=== PATIENT | male | born 1975 | race Caucasian/White ===

== ENCOUNTER 2017-01-17 04:39 | Emergency (ER) | payer OTHER ==
[~2017-01-17] VITALS: Ht 182.9 cm; Wt 122.5 kg
[2017-01-17] MEDS ORDERED: SERTRALINE HCL50 MG PO (04:46)
[2017-01-17] MEDS ORDERED: ATORVASTATIN CA10 MG PO (04:46)
[2017-01-17] MEDS ORDERED: LISINOPRIL40 MG PO (04:46)
[2017-01-17] MEDS ORDERED: VITAMIN D250000 UNIT PO (04:46)
[2017-01-17] MEDS ORDERED: NAPROXEN500 MG PO (04:47)
[2017-01-17] MEDS ORDERED: NORCO 5-325 TA1 EACH PO (06:19)
== END 2017-01-17 07:06 | disposition home or self-care (01) ==
LOC: ED 04:39
DX: N23 Unspecified renal colic (principal); I10 Essential (primary) hypertension; Z98.890 Other specified postprocedural states; Z79.899 Other long term (current) drug therapy
CPT/HCPCS: 74176; 81001; 99284

== ENCOUNTER 2020-05-05 07:55 | Day surgery (SDC) | payer OTHER ==
[~2020-05-05] VITALS: Ht 182.9 cm; Wt 118.2 kg
[~2020-05-05 07:55] MED LIST: ATORVASTATIN CA10 MG PO; LISINOPRIL40 MG PO; NAPROXEN500 MG PO; NORCO 5-325 TA1 EACH PO; SERTRALINE HCL50 MG PO; VITAMIN D250000 UNIT PO; ZESTRIL40 MG PO; ZYRTEC10 M3 PO
[2020-05-05] MEDS ORDERED: IRON 100-VITAM1 EACH PO (08:15)
--- NOTE | 2020-05-05 08:31 | NUR ---
BILATERAL ALECIA HOSE IN PLACE WITH FOOTPUMPS. PT BRUSHED TEETH WITH PROVIDED RINSE AND NOSE SWABBED. MOTHER IN ROOM AT BEDSIDE, CALL LIGHT WITHIN REACH.
[2020-05-05] MEDS ORDERED: ASPIRIN EC325 MG PO (11:48)
[2020-05-05] MEDS ORDERED: XARELTO10 MG PO (11:48)
[2020-05-05] MEDS ORDERED: STOOL SOFTENER1 EAC4 PO (11:49)
[2020-05-05] MEDS ORDERED: OXYCODONE HCL5 MG PO (11:49)
[2020-05-05] MEDS ORDERED: GABAPENTIN600 MG PO (11:49)
--- NOTE | 2020-05-05 11:59 | NUR ---
05/05/20 1159 Sheets,Lorrie 1145 PT ARRIVED TO PACU SNORING AND JAW THRUST NEEDED OFF AND ON TO MAINTAIN AIRWAY. PT ON 6L VIA MASK, VSS. 1152 PT MAINTAIING OWN AIRWAY AND SNORING NOTED. PT REACTIVE TO PAINFUL STIMULI. 1156 PT WAKES AND IS REORIENTED TO PACU, PT DENIES PAIN AND NAUSEA. 1157 O2 MASK REMOVED AND PT ENCOURAGED TO DEEP BREATH.
--- NOTE | 2020-05-05 12:48 | NUR ---
PT ARRIVES TO PACU AWAKE AND ALERT, RR EVEN AND UNLABORED. PT DENIES PAIN IN RIGHT SHOULDER STATES "COMPLETELY NUMB" AND IS UNABLE TO MOVE DIGITS ON RIGHT SIDE. PT PROVIDED ICED WATER, JELLO AND CRACKERS. PT REQUESTS TO LAY BACK AND LIGHTS DIMMED. CALL LIGHT WITHIN REACH.
--- NOTE | 2020-05-05 13:39 | NUR ---
PT RESTING WITH EYES CLOSED ON ENTRANCE TO ROOM. PT EASILY AROUSES WITH VERBAL STIMULI. PT DENIES ANY PAIN IN RIGHT SHOULDER. PT TOLERATES WATER AND JELLO WITH NO NAUSEA. CONT PULSE OXIMETER IN PLACE, SATS GREATER THAN 94% ON RA. CALL LIGHT WITHIN REACH.
--- NOTE | 2020-05-05 14:39 | NUR ---
PT WAKES WHEN THIS RN ENTERS ROOM. PT POSITIONED TO 90 DEGREES IN BED. PT DENIES ANY PAIN OR NAUSEA. NERVE BLOCK IN PLACE, PT UNABLE TO OPEN HAND OR MOVE THUMB AT THIS TIME. PT STATES RIGHT ARM NUMB. JOSIANE WITH PT IN PT ROOM WITH STUDENT. PT REQUESTS "DENVER BURGOS" THIS RN WILL NOTIFY DIETARY. CALL LIGHT WITHIN REACH.
--- NOTE | 2020-05-05 15:02 | OR ---
[facility] [address] [place], [place] [address] Signed DATE OF OPERATION: 05/05/2020 SURGEON: Keny Romeo MD PREOPERATIVE DIAGNOSIS: Posttraumatic degenerative joint disease, right shoulder. POSTOPERATIVE DIAGNOSIS: Posttraumatic degenerative joint disease, right shoulder. PROCEDURE PERFORMED: Right shoulder hemiarthroplasty. OCCUPATIONAL THERAPY DEPARTMENT CHAIR: Radha Huertas PA-C. ANESTHESIA: General. BLOOD LOSS: 200 mL. IMPLANTS: [place] size 12 reunion with a 52 x 17 head. BRIEF HISTORY: Kavin is a 44-year-old gentleman who had increasing shoulder pain and stiffness. He had multiple dislocations as a youth and was fixed about 15 years ago. The shoulder continued to progress fashion. Risks and benefits of operative treatment were discussed with him and he elected to proceed. DESCRIPTION OF PROCEDURE: Once consent was obtained, he was taken to the operating room. After adequate anesthesia, he was placed in a low beach chair position. All downside pressure points were well padded. The opposite arm was placed in well-padded arm pinon. The arm was then prepped and draped in a standard sterile fashion from the angle of the jaw to the hand. The standard deltopectoral approach was taken through skin and subcutaneous tissue. The cephalic vein was located and was dissected free and taken medially. All bleeders were cauterized as we went. The deltoid was then mobilized with the arm in abduction. The conjoined tendon was located and mobilized to protect the nerve. The Electronically Signed By: KENY ROMEO MD 05/05/20 1502 PATIENT NAME: KAVIN ENGLE OPERATIVE REPORT DATE OF : 79 REPORT #: [id number] PHYSICIAN: KENY ROMEO MD PCP: JUANIS URENA REPORT IS CONFIDENTIAL AND NOT TO BE RELEASED WITHOUT AUTHORIZATION [facility] [address] [place], [place] [address] Signed inferior vessels were then cauterized and the subscapularis was identified. The biceps tendon was identified and the biceps tendon sheath was opened up. The biceps was then tenodesed at the pectoralis insertion. The upper 1/3rd of the pectoralis was released to help with exposure. The biceps was then tenotomized and the biceps tendon groove was opened all the way into the rotator cuff interval. The lesser tuberosity was then osteotomized using curved osteotome and the capsule was peeled off the anterior humerus. This mobilized the subscapularis. Adhesions deep and superficial surfaces were bluntly dissected. There was good excursion of the tendon, #2 FiberWire was placed in this to provide retraction. Once this was opened up, the labrum and remainder of the biceps was removed. The shoulder was then dislocated. The center of the shoulder of the humeral shaft was then opened up with a rongeur superiorly. The sharp awl was then used to enter the canal and it was sequentially reamed up to a 13. The cutting jig was then placed on the reamer and advanced until it was in the proper position such that the cut would come out right at the insertion of the rotator cuff. The cut was made with care taken to protect the surrounding soft tissues. The cut was finished using the osteotomes and the piece was passed off to be measured. The periarticular osteophytes were removed and the humerus was broached starting with a 9 going up to a 12. We left the 12 in position and trialed a 52 x 20 head, which was too big. There was not enough posterior excursion. We went down to the next level which was a 52 x 17, and we had good 50% posterior subluxation and good range of motion in abduction and internal rotation. The shoulder was again dislocated and the trials were removed. Three drill holes were placed in the lesser tuberosity and #5 Ethibond was placed through these. The stem was then impacted until it was almost completely seated and then, the head was placed on it and the final well seated. The shoulder was again reduced taken through range of motion as noted above. All bleeders were cauterized throughout the procedure. The shoulder was then irrigated using normal saline followed by dilute iodine, followed by more normal saline. The periarticular soft tissues were injected with 60 mL of Toradol-ropivacaine mixture. The lesser tuberosity was then repaired back to its bony bed using #5 FiberWire previously placed using a racking hitch stitch. The three stitches were then tied to each other. The rotator cuff interval was partially closed using #2 FiberWire and both repairs were over sewed with #2 FiberWire. There was excellent adherence at the end. The wound was again irrigated and deltopectoral interval was closed using 0 Vicryl. The vein was noted to be torn at the end of the procedure and was tied off with 3-0 silk. The subcutaneous tissue was closed with 2-0 Stratafix, and the skin with lowell. The wound was dressed with a BRYANT wound VAC dressing. He was awakened and taken to the recovery room in satisfactory condition. All sponge, needle, and instrument counts were correct. Keny Romeo MD Electronically Signed By: KENY ROMEO MD 05/05/20 1502 PATIENT NAME: KAVIN ENGLE OPERATIVE REPORT DATE OF : 79 REPORT #: [id number] PHYSICIAN: KENY ROMEO MD PCP: JUANIS URENA REPORT IS CONFIDENTIAL AND NOT TO BE RELEASED WITHOUT AUTHORIZATION [facility] [address] [place], [place] [address] Signed /[facility] /[id number] Copies: ~ Electronically Signed By: KENY ROMEO MD 05/05/20 1502 PATIENT NAME: KAVIN ENGLE OPERATIVE REPORT DATE OF : 79 REPORT #: [id number] PHYSICIAN: KENY ROMEO MD PCP: JUANIS URENA REPORT IS CONFIDENTIAL AND NOT TO BE RELEASED WITHOUT AUTHORIZATION
--- NOTE | 2020-05-05 15:09 | NUR ---
PATIENT CALLED REPORTING NAUSEA WHILE WORKING WITH PHYSICAL THERAPY. PER [facility] NO AVAILABLE ORDERS TO ADMINISTER ANTIEMETICS. NOTIFIED RUBY VEGAS, WHO VERBALIZED INAPSINE 1.25 MG IV ONCE. REPORTED TO SAMIR GARCIA, PRIMARY NURSE.
--- NOTE | 2020-05-05 17:35 | NUR ---
[id number]: IN TO PT ROOM, PT DENIES NAUSEA AT THIS TIME. WILL HOLD NEW ORDER IN CASE PT BECOMES NAUSEATED AGAIN. PT CONT TO WORK WITH PHYSICAL THERAPY. 1530: JOSIANE WITH PHYSICAL THERAPY STATES PT IS SAFE TO DC HOME. PT UP TO BATHROOM WITH RN ASSIST, STEADY GAIT DENIES NAUSEA OR DIZZINESS. PT ABLE TO VOID QS ORANGE COLORED URINE WITH NO PROBLEMS. BACK TO ROOM TO REST. 1600: DR. MANDUJANO NOTIFIED OF PT STATUS, GIVES VERBAL DC ORDER. 1630: PT MOTHER ARRIVES TO DS RM 4. DC INSTRUCTIONS PRESENTED TO BOTH PT AND MOTHER, MANY QUESTIONS ASKED AND ADDRESSED. PT AWARE OF MEDICATION ESCRIPTED TO PREFERRED PHARMACY. THIS RN ASSISTS DRESSING PT, EDUCATION GIVEN REGARDING SLING AND CRYO CUFF. MOTHER PULLS PERSONAL VEHICLE IN FRONT OF MAIN HOSPITAL DOORS. PT DC FROM DS RM 4 VIA WC TO HOME.
== END 2020-05-05 17:15 | disposition home or self-care (01) ==
LOC: DS 07:55
PROVIDERS: ATTEND Specialist
DX: M19.111 Post-traumatic osteoarthritis, right shoulder (principal); I10 Essential (primary) hypertension; G47.33 Obstructive sleep apnea (adult) (pediatric); G89.18 Other acute postprocedural pain; Z79.01 Long term (current) use of anticoagulants
CPT/HCPCS: 00400; 64415; 76942; 97110; 97161; C1776; J0690; J1100; J1885; J2001; J2250; J2405; J2704; J2795; J3010; J3590; J7121; L3670

== ENCOUNTER 2022-02-05 20:08 | Emergency (ER) | payer OTHER ==
[~2022-02-05] VITALS: Ht 182.9 cm; Wt 117.9 kg
[~2022-02-05 20:08] MED LIST changes: +ASPIRIN EC325 MG PO; +GABAPENTIN600 MG PO; +IRON 100-VITAM1 EACH PO; +OXYCODONE HCL5 MG PO; +STOOL SOFTENER1 EAC4 PO; +XARELTO10 MG PO
--- OUTSIDE RECORDS SUMMARY | 2022-02-05 20:12 | XMS ---
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 Jack has no Care Guidelines for this patient. [place] VISIT COUNT (12 MO.) 1 [facility] TOTAL 1 NOTE: Visits indicate total known visits. ED/UCC VISIT TRACKING (12 MO.) 02/05/2022 20:10 ROB[facility] TYPE: Emergency COMPLAINT: - R AND L LEG INJ INPATIENT VISIT TRACKING (12 MO.) No inpatient visits to display in this time frame [email or web address]
[2022-02-05] MEDS ORDERED: CEPHALEXIN500 M1 PO (21:36)
== END 2022-02-05 22:20 | disposition home or self-care (01) ==
LOC: ED 20:08
PROC: 0HQJXZZ Repair Left Upper Leg Skin, External Approach (ICD-10-PCS; principal; 2022-02-05)
DX: S71.112A Laceration without foreign body, left thigh, initial encounter (principal); S80.211A Abrasion, right knee, initial encounter; I10 Essential (primary) hypertension; Z23 Encounter for immunization; Z79.899 Other long term (current) drug therapy; W25.XXXA Contact with sharp glass, initial encounter
CPT/HCPCS: 12001; 90471; 90715; 99282-25; A9270

== ENCOUNTER 2024-06-21 06:20 | Day surgery (SDC) | payer BC ==
[~2024-06-21] VITALS: Ht 182.9 cm; Wt 115.9 kg
[~2024-06-21 06:20] MED LIST changes: +CEPHALEXIN500 M1 PO; +MIDAZOLAM HCL 5 MG/5 ML VIAL IV PRN; +fentaNYL citrate 100 MCG/2 ML VIAL IV PRN
[2024-06-21 06:40] VITALS: BP 146/94
[2024-06-21] MEDS ORDERED: fentaNYL citrate 100 MCG/2 ML VIAL ONE ×2 (06:52→07:42)
[2024-06-21] MEDS ORDERED: MIDAZOLAM HCL 2 MG/2 ML VIAL ONE (06:53)
[2024-06-21] MEDS ORDERED: LACTATED RINGER'S 1,000 ML IV SCH (07:00)
[2024-06-21] MEDS ORDERED: LIDOCAINE HCL 1% 5 ML SDV INJ ONE (07:00)
[2024-06-21] MEDS ORDERED: IBLOOD GLUCOSE TEST STRIP 1 EA TEST VI PRN (07:00)
--- NOTE | 2024-06-21 08:20 | NUR ---
06/21/24 0820 Marielos Ramirez 0805- PT PRESENTS TO PACU, SEMI CHAPA POSITION. AWAKE BUT VERY DROWSY. REPORTS PAIN 1/10 TO ABD, FIRM, ENCOURAGED TO PASS GAS. DENIES NAUSEA. LR INFUSING TO RW IV. O2 AT 2L PER NC ON ARRIVAL, TURNED TO ROOM AIR. BREATHING EVEN AND NON LABORED. ALL MONITORS IN PLACE. 0815- PT RESTING INTERMITTENTLY, CONTINUE TO MONITOR, NO SIGNS OF DISTRESS. 0820- PT REPORTS NO CHANGE IN ABD PAIN, EDUCATED ON LAYING ON SIDE TO HELP PASS GAS. PT CHOOSES TO LAY ON BACK, AWAKE OFF AND ON.
[2024-06-21 08:28] VITALS: BP 132/88
--- NOTE | 2024-06-23 12:12 | OR ---
[facility] [place] [facility] [address] [place], [place] [address] Signed DATE OF OPERATION: 06/21/2024 SURGEON: Edilberto Castillo MD PREOPERATIVE DIAGNOSIS: Family history of colon cancer (mother). POSTOPERATIVE DIAGNOSIS: Normal colon. PROCEDURE: Total colonoscopy to cecum. ANESTHESIA: Intravenous sedation; fentanyl 150 mcg and Versed 6 mg. INDICATION: This 48-year-old white man is a patient of ROSITA Martines. He is known to have a family history of colon cancer in his mother on whom I operated. The patient currently has no symptoms of bleeding, diarrhea, or constipation. He is admitted at this time to undergo screening colonoscopy on the basis of his family history and his age of 48 years. He understands the risk of bleeding, infection, and perforation and wished to proceed. FINDINGS: The prep was excellent. Complete colonoscopy was undertaken to the cecum with full intubation of the cecum. There was no sign of polyp, diverticular formation, colitis, or cancer. Retroflexed view was normal as well. DESCRIPTION OF PROCEDURE: The patient was brought to the endoscopy suite and placed in the lateral decubitus position, given intravenous sedation to the point of slurred speech and nystagmus. Digital rectal examination was normal. An Olympus video colonoscope was passed in the rectum and manipulated throughout the colon ultimately intubating the cecum itself. The ileocecal valve and appendiceal orifice were normal. Scope was withdrawn from that point and examination throughout showed no sign of abnormality, specifically no polyps, diverticular formation, colitis or cancer. Retroflexed view of the rectum was normal. Scope was removed and the patient was taken to the recovery room in good condition. Electronically Signed By: EDILBERTO CASTILLO MD 06/23/24 1212 PATIENT NAME: KARINA ENGLE OPERATIVE REPORT DATE OF : 79 REPORT #: [id number] PHYSICIAN: EDILBERTO CASTILLO MD PCP: JUANIS URENA REPORT IS CONFIDENTIAL AND NOT TO BE RELEASED WITHOUT AUTHORIZATION [facility] [place] [facility] [address] [place], [place] [address], [place] [address] Signed CONCLUDING DIAGNOSIS: Normal colon to cecum. PLAN: Recommend repeat colonoscopy in 5 years due to family history, sooner if symptoms should develop. He will return to the ongoing care of ROSITA Martines. MD SMOOTH Renteria/BREONNAL /[phone] cc: ROSITA Martines Copies: JUANIS URENA ~ Electronically Signed By: EDILBERTO CASTILLO MD 06/23/24 1212 PATIENT NAME: KARINA ENGLE OPERATIVE REPORT DATE OF : 79 REPORT #: [id number] PHYSICIAN: EDILBERTO CASTILLO MD PCP: JUANIS URENA REPORT IS CONFIDENTIAL AND NOT TO BE RELEASED WITHOUT AUTHORIZATION
== END 2024-06-21 08:35 | disposition home or self-care (01) ==
LOC: DS 06:20 → OPS 06:20 → DS 13:45 → OPS 13:45
PROVIDERS: ATTEND Surgery
PROC: 0DJD8ZZ Inspection of Lower Intestinal Tract, Via Natural or Artificial Opening Endoscopic (ICD-10-PCS; principal; 2024-06-21 07:30)
DX: Z12.11 Encounter for screening for malignant neoplasm of colon (principal); I10 Essential (primary) hypertension; G47.30 Sleep apnea, unspecified; E66.9 Obesity, unspecified; Z68.34 Body mass index [BMI] 34.0-34.9, adult; Z79.899 Other long term (current) drug therapy; Z80.0 Family history of malignant neoplasm of digestive organs
CPT/HCPCS: 99153; G0500; J2250; J3010; J7121